=== PATIENT | female | born 1935 | race Hispanic/Latino ===

== ENCOUNTER 2020-01-21 17:36 | Emergency (ER) | payer MEDICARE ==
[~2020-01-21] VITALS: Ht 154.9 cm; Wt 72.6 kg
[2020-01-21] MEDS ORDERED: SODIUM CHLORIDE 0.9% 1000ML 1,000 ML IV STA (18:03)
[2020-01-21] MEDS ORDERED: SODIUM CHLORIDE 0.9% 1000ML 1,000 ML ONE (18:20)
[2020-01-21] MEDS ORDERED: POTASSIUM CHLO10 ME1 PO (18:55)
[2020-01-21] MEDS ORDERED: ZOFRAN4 MG PO (18:55)
== END 2020-01-21 19:30 | disposition home or self-care (01) ==
LOC: FSED 18:10
DX: D68.32 Hemorrhagic disorder due to extrinsic circulating anticoagulants (principal); E86.0 Dehydration; E87.6 Hypokalemia; I10 Essential (primary) hypertension; E11.65 Type 2 diabetes mellitus with hyperglycemia; E78.5 Hyperlipidemia, unspecified; I25.2 Old myocardial infarction; Z95.1 Presence of aortocoronary bypass graft
CPT/HCPCS: 70450; 80053; 81003; 84484; 85025; 85610; 93005; 99283; J7030